=== PATIENT | female | born 1955 | race Caucasian/White ===

== ENCOUNTER → 2017-04-15 | Outpatient (CLI) | payer OTHER | LOC: FIMAGING 12:49 | PROVIDERS: ATTEND Registered Nurse | DX: N95.0 Postmenopausal bleeding (principal) ==

== ENCOUNTER → 2017-10-19 | Outpatient (CLI) | payer OTHER | DX: N28.9 Disorder of kidney and ureter, unspecified (principal) | CPT/HCPCS: 76770-PO ==

== ENCOUNTER → 2018-07-13 | Outpatient (CLI) | payer OTHER | LOC: GIMAGING 14:29 → EDSTATUS 17:10 | PROVIDERS: ATTEND Internal Medicine Geriatric Medicine | DX: M41.86 Other forms of scoliosis, lumbar region (principal); M50.322 Other cervical disc degeneration at C5-C6 level; M46.92 Unspecified inflammatory spondylopathy, cervical region; I65.23 Occlusion and stenosis of bilateral carotid arteries; J40 Bronchitis, not specified as acute or chronic | CPT/HCPCS: 71046-PO; 72040-PO; 72070-PO ==